=== PATIENT | female | born 1975 | race African-American/Black ===

== ENCOUNTER 2016-08-17 12:44 | Emergency (ER) | payer OTHER ==
[~2016-08-17] VITALS: Ht 175.3 cm; Wt 171.9 kg
[2016-08-17] MEDS ORDERED: ONDANSETRON ODT 4 MG TAB.RAPDIS. PO ONE (13:30)
[2016-08-17] MEDS ORDERED: CARVEDILOL 6.25 MG TABLET. PO ONE (13:30)
[2016-08-17] MEDS ORDERED: LISINOPRIL 10 MG TABLET PO ONE (13:30)
[2016-08-17] MEDS ORDERED: HYDROCHLOROTHIAZIDE 25 MG TABLET PO ONE (13:30)
--- NOTE | 2016-08-17 13:40 | EKG ---
[facility] [address] [place] [address] Test Date: 2016-08-17 Test Time: 13:28:35 Pat Name: KASIE BHAKTA Department: Room: Gender: F Manager [employer]: : 1975 Requested By: FEDERICO WILSON Order Number: [id number] Reading MD: Don Dill Measurements Intervals [place] Rate: 84 P: 52 SD: 172 QRS: 42 QRSD: 82 T: 31 QT: 366 QTc: 436 Interpretive Statements SINUS RHYTHM Electronically Signed On 08-17-2016 15:08:34 CDT by Don Dill
[2016-08-17 14:23] VITALS: BP 157/89
[2016-08-17] MEDS ORDERED: ONDA4TAB10 SL (14:35)
--- NOTE | 2016-08-17 14:38 | PHYS DOC ---
Past Medical History Past Medical History: Hypertension, Migraines Past Surgical History: Cholecystectomy, Tubal ligation Alcohol Use: None Drug Use: None Adult General Chief Complaint Chief Complaint: HYPERTENSION HPI HPI Patient is a 40 year old female presenting to the emergency department for evaluation of high blood pressure with slight dizziness and nausea. Patient says that she works at the [employer] and while she was sitting at her desk she felt slightly off with the 2 symptoms listed and she went to the nurse there and had her blood pressure checked and it was around 200/110. Patient admits that she forgot to take her blood pressure medications yesterday evening. She did not bring her medications with her but says that she takes Norvasc carvedilol hydrochlorothiazide and lisinopril. She says the dizziness is that she feels off with her head fuzzy and she denies any room spinning sensation passing out symptoms or difficulty with gait. She says the nausea is slight but there is no chest pain shortness of breath diaphoresis or vomiting abdominal pain vision changes difficulty speaking. She says that she has had these symptoms before when she forgot her medications and has had high blood pressure. I recommended that we treat her blood pressure and do some blood and EKG testing and patient is agreeable with plan. Review of Systems Review of Systems Constitutional: Denies fever or chills [] Eyes: Denies change in visual acuity, redness, or eye pain [] Respiratory: Denies cough or shortness of breath [] Cardiovascular: No CP GI: Denies abdominal pain. + nausea. No vomiting, bloody stools or diarrhea [] : Denies dysuria or hematuria [] Musculoskeletal: Denies back pain or joint pain [] Neurologic: Denies headache, focal weakness. + dizziness Current Medications Current Medications Current Medications Medications (Trade) Dose Ordered Sig/[facility] Start Time Stop Time Status Last Admin Dose Admin Carvedilol (Coreg) 6.25 mg 1X ONCE 08/17/16 13:30 08/17/16 14:06 DC 08/17/16 14:23 6.25 MG Hydrochlorothiazide (Hydrodiuril) 25 mg 1X ONCE 08/17/16 13:30 08/17/16 14:06 DC 08/17/16 14:24 25 MG Lisinopril (Prinivil) 40 mg 1X ONCE 08/17/16 13:30 08/17/16 14:06 DC 08/17/16 14:23 40 MG Ondansetron HCl (Zofran Odt) 8 mg 1X ONCE 08/17/16 13:30 08/17/16 14:06 DC 08/17/16 14:24 8 MG Allergies Allergies Allergies Coded Allergies Type Severity Reaction Last Updated Verified No Known Drug Allergies 08/17/16 No Physical Exam Physical Exam Constitutional: Well developed, well nourished, no acute distress, non-toxic appearance. [] Eyes: PERRLA, EOMI, conjunctiva normal, no discharge. [] Cardiovascular:Heart rate regular rhythm, no murmur [] Lungs & Thorax: Bilateral breath sounds clear to auscultation [] Abdomen: Bowel sounds normal, soft, no tenderness, no masses, no pulsatile masses. [] Extremities: No tenderness, no cyanosis, no clubbing, ROM intact, no edema. [] Neurologic: Alert and oriented X 3, normal motor function, normal sensory function, no focal deficits noted. [] Current Patient Data Vital Signs Vital Signs Date Time Temp Pulse Resp B/P Pulse Ox O2 Delivery O2 Flow Rate FiO2 08/17/16 14:23 86 157/89 08/17/16 14:21 99 Room Air 08/17/16 12:55 97.9 20 97.9 EKG EKG Normal sinus rhythm with heart rate of 84 with normal axis and no deviation with no ST elevation or depression and normal T waves. Radiology/Procedures Radiology/Procedures [] Course & Med Decision Making Course & Med Decision Making I ordered labs but they were unable to be obtained after several attempts. Patient refused any further lab draws and did not want any further testing. She says that her nausea and dizziness is resolved and her blood pressures are now improving with the numbers in the 160/90 range. There is no signs or symptoms of end organ damage as she has a normal neurologic exam is urinating normal as normal EKG with no shortness of breath or chest pain. Given I do not suspect any end organ damage I think it is reasonable for her to go home at this point and follow-up with her primary care provider as an outpatient. She says that she has an appointment early next week for a lab draw and PCP appointment. Patient told that she should have a better medication regimen been taking all 4 of her medications at one time at night. I told her to split her medications up. I told her to take her combo HCTZ lisinopril and the carvedilol in the morning and then take her Norvasc at night. Patient aware and agreeable with plan for discharge and verbalized understanding of the need for short-term follow-up district ER return precautions discussed, worsening pain weakness or any neurologic symptoms or any other general concerns. Dragon Disclaimer Dragon Disclaimer This electronic medical record was generated, in whole or in part, using a voice recognition dictation system. Departure Departure Impression: Primary Impression: Hypertension Additional Impression: Nausea alone Disposition: HOME, SELF-CARE Condition: GOOD Referrals: GRETA MONTANO MD (PCP) Patient Instructions: Hypertension Additional Instructions: TAKE YOUR NORVASC TONIGHT. TAKE YOUR HCTZ/LISINOPRIL AND CARVEDILOL TOMORROW MORNING AND THEN START DOING THIS PATTERN OF TAKING YOUR MEDS. Scripts Ondansetron (Zofran Odt)4 Mg Tab.rapdis1 Tab SL Q8HRS #15 TAB Prov:FEDERICO WILSON DO 08/17/16 Problem Qualifiers Primary Impression: Hypertension Hypertension type: essential hypertension Qualified Code: I10 - Essential ( primary) hypertension FEDERICO WILSON DO Aug 17, 2016 14:38
== END 2016-08-17 15:17 | disposition home or self-care (01) ==
LOC: ER 12:44
DX: I10 Essential (primary) hypertension (principal); R11.0 Nausea; G43.909 Migraine, unspecified, not intractable, without status migrainosus
CPT/HCPCS: 93005; 99284; Q0162